=== PATIENT | female | born 1990 | race Caucasian/White ===

== ENCOUNTER 2016-12-29 06:47 | Day surgery (SDC) | payer OTHER ==
[2016-12-28 12:09] VITALS: BMI 43.0
[~2016-12-29] VITALS: Ht 162.6 cm; Wt 101.0 kg
[2016-12-29] VITALS (8 sets, daily range): BP systolic 95–117; BP diastolic 43–71; PULSE 56–78; RESP 15–19; Ht 162.6 cm; Wt 101.0 kg
[~2016-12-29 06:47] MED LIST: CEFAZOLIN 2 GM/50 ML (PMX) 50 ML IVPB SCH; SOD CHLORIDE 0.9% 1,000 ML IV SCH
[2016-12-29] MEDS ORDERED: BUPIVACAINE 0.25% (MPF) 30 ML INJ ONE (09:35)
[2016-12-29] MEDS ORDERED: MIDAZOLAM 1 MG/ML 2 ML INJ ONE (09:40)
[2016-12-29] MEDS ORDERED: LIDOCAINE 2% (MDV) 20 ML INJ ONE (09:44)
[2016-12-29] MEDS ORDERED: CEFAZOLIN 1 GM INJ ONE (09:50)
[2016-12-29] MEDS ORDERED: PROPOFOL 20 ML ONE (09:50)
[2016-12-29] MEDS ORDERED: KETOROLAC 30 MG INJ ONE (09:57)
[2016-12-29] MEDS ORDERED: ONDANSETRON 4 MG INJ IV PRN (10:00)
[2016-12-29] MEDS ORDERED: OXYCODONE/ACETAMINOPHEN (5/325) TAB PO PRN ×2 (10:00)
[2016-12-29] MEDS ORDERED: MEPERIDINE 25 MG INJ IV PRN (10:00)
[2016-12-29] MEDS ORDERED: SOD CHLORIDE 0.9% 1,000 ML IV ONE (10:00)
[2016-12-29] MEDS ORDERED: DIPHENHYDRAMINE 50 MG INJ IV PRN (10:00)
[2016-12-29] MEDS ORDERED: HYDROmorphONE (0.2 MG/ML) 10ML SYG IV PRN ×3 (10:00)
[2016-12-29] MEDS ORDERED: CEFAZOLIN 2 GM/50 ML (PMX) 50 ML IVPB ONE (10:00)
--- NOTE | 2016-12-29 10:26 | OPR ---
DATE OF OPERATION: 12/29/2016 INDICATION: This is a 26-year-old female with a left arm mass. She requests surgical excision. Th e risks, alternatives, benefits, and personnel were discussed with the patient. The patient express ed understanding and consented to the operation. PREOPERATIVE DIAGNOSIS: Left arm mass. POSTOPERATIVE DIAGNOSIS: Left arm mass. OPERATION PERFORMED: 1. Excision of left arm mass with a 5-cm size incision and a 5-cm size mass. 2. Localized adjacent tissue transfer with the use of skin flaps. SURGEON: Sherice Means MD SPECIMEN: Left arm mass. COMPLICATIONS: None. ANESTHESIA: MAC. PROCEDURE: The patient was taken to the OR and prepped and draped in the usual sterile fashion. A surgical timeout was performed. IV antibiotics were given. Local anesthesia was infiltrated to the mass. A 10 blade was used for the incision. Dissection cautery was carried down to the mass and ci rcumferentially excised. Due to the size of the tissue defect, localized adjacent tissue transfer wi th the use of skin flaps was performed. Multilayer closed with interrupted 3-0 Vicryl and skin stap les. Dry dressings were applied. Dictated By: SHERICE KELLEY/SEUN Conf#: [id number] DID#: [id number]
[2016-12-29] MEDS ORDERED: HYDROCODONE/APAP (5/325) TAB PO ONE (10:30)
== END 2016-12-29 11:20 | disposition home or self-care (01) ==
LOC: SDS 06:47
PROVIDERS: ATTEND Surgery
DX: D17.22 Benign lipomatous neoplasm of skin and subcutaneous tissue of left arm (principal)
CPT/HCPCS: 14020; 84703; 88304; J0690; J1885; J2250; Z7512; Z7610